=== PATIENT | female | born 1980 | race Caucasian/White ===

== ENCOUNTER 2019-01-05 17:04 | Emergency (ER) | payer OTHER ==
[~2019-01-05] VITALS: Ht 162.5 cm; Wt 59.9 kg
[~2019-01-05 17:04] MED LIST: ATIVAN1 MG PO; MOTRIN800 MG PO
== END 2019-01-05 18:57 | disposition home or self-care (01) ==
LOC: ED 17:04
DX: S90.32XA Contusion of left foot, initial encounter (principal); W55.19XA Other contact with horse, initial encounter; Y93.89 Activity, other specified; Y92.89 Other specified places as the place of occurrence of the external cause; Y99.8 Other external cause status